=== PATIENT | male | born 1960 | race Caucasian/White ===

== ENCOUNTER 2016-05-12 09:33 | Observation (INO) | payer MEDICAID ==
[~2016-05-12 09:33] MED LIST: AUGMENTIN 875-1 EAC2 PO; BACTRIM DS TAB1 EAC2 PO; BUSPIRONE HCL5 M1 PO; PROTONIX40 M2 PO; TOPROL XL50 M1 PO; ULTRAM50 M1 PO
[2016-05-12] MEDS ORDERED: LOPRESSOR50 M1 PO (10:49)
[2016-05-12] MEDS ORDERED: FERROUS SULFATE PO (10:50)
[2016-05-12 11:00] LABS: BASO % 0.5 % (0-2); EOS % 4.5 % (0-7); EOSINOPHIL ABSOLUTE COUNT 0.4 tho/cmm (0.0-0.7); HCT-HEMATOCRIT 39.1 % (36.0-53.5); HGB-HEMOGLOBIN 11.7 gm/dl (13.5-17.0); IMMATURE GRANULOCYTES ABSOLUTE 0.01 tho/cmm (0-0.03); IMMATURE GRANULOCYTES PERCENT 0.1 % (0-0.3); LYMPH % 28.5 % (20-45); LYMPH ABSOLUTE COUNT 2.3 tho/cmm (0.8-4.5); MCH (MEAN CORPUSCULAR HGB) 21.7 pg (28.0-32.0); MCHC MEAN CORPUSCULAR HGB CONC 29.9 % (32.0-36.0); MCV (MEAN CELL VOLUME) 72.4 fl (82.0-96.0); MEAN PLATELET VOLUME 9.7 cmc (9.4-12.4); MONO % 7.4 % (0-12); MONOCYTE ABSOLUTE COUNT 0.6 tho/cmm (0.0-1.2); NEUTROPHIL ABSOLUTE COUNT 4.7 tho/cmm (1.6-8.0); NEUTROPHIL-AUTOMATED 4.7 tho/cmm (1.6-8.0); PLATELET COUNT 287 tho/cmm (150-450)
[2016-05-12 11:16] LABS: ALB/GLOB RATIO 0.9 (0.8-2.0); ALBUMIN 3.3 g/dl (3.5-5.0); ALKALINE PHOSPHATASE 94 U/L (33-138); ALT/SGPT 19 U/L (12-78); ANION GAP 11 mmol/L (0-20); AST/SGOT 22 U/L (10-40); BILIRUBIN,TOTAL 0.3 mg/dl (0.0-1.5); BLOOD UREA NITROGEN 11 mg/dl (6-24); C-REACTIVE PROTEIN 0.5 mg/dl (0-0.9); CALCIUM 8.2 mg/dl (8.5-10.5); CARBON DIOXIDE-VENOUS 24 mmol/L (22-32); CHLORIDE 110 mmol/l (96-110); CREATININE 0.93 mg/dl (0.60-1.30); GLUCOSE 104 mg/dL (70-110); PHOSPHOROUS 2.7 mg/dl (2.5-4.9); PREALBUMIN 18.8 mg/dl (20.0-40.0); SODIUM 141 mmol/L (135-145); eGFR VALUE FOR BLACK >90 mL/Min
[2016-05-12] MEDS ORDERED: ULTRAM50 M1 PO (12:55)
[2016-05-12] MEDS ORDERED: BACTRIM DS TAB1 EAC2 PO (12:56)
== END 2016-05-12 17:35 | disposition other institution (70) ==
LOC: 5WD 09:33
PROVIDERS: ADMIT Internal Medicine Infectious Disease
DX: R14.0 Abdominal distension (gaseous) (principal); M19.90 Unspecified osteoarthritis, unspecified site; I10 Essential (primary) hypertension; Z79.2 Long term (current) use of antibiotics; Z79.899 Other long term (current) drug therapy; Z85.038 Personal history of other malignant neoplasm of large intestine; Z86.14 Personal history of Methicillin resistant Staphylococcus aureus infection; Z90.49 Acquired absence of other specified parts of digestive tract; Z96.641 Presence of right artificial hip joint; Z98.890 Other specified postprocedural states
CPT/HCPCS: G0378; G0379